=== PATIENT | female | born 1955 | race Caucasian/White ===

== ENCOUNTER → 2018-11-21 | Outpatient (REF) | payer MEDICARE, MEDICAID ==
[2018-11-21 19:10] LABS: ALBUMIN 4.2 GM/DL (3.2-5.2); BILIRUBIN,TOTAL 0.8 MG/DL (0.2-1.0); CALCIUM LEVEL 9.1 MG/DL (8.8-10.2); CHOLESTEROL RISK RATIO 2.37 (<5); CREATININE FOR GFR 1.15 MG/DL (0.55-1.30); FREE T4 2.08 NG/DL (0.76-1.46); GLOMERULAR FILTRATION RATE 50.9 (>45); POTASSIUM SERUM 4.1 MEQ/L (3.5-5.1); THYROID STIMULATING HORMONE 0.079 uIU/ML (0.358-3.740); TOTAL PROTEIN 7.3 GM/DL (6.4-8.2)
[2018-11-21 19:11] LABS: FOLATE 14.6 NG/ML (>5.4); TOTAL 25(OH) VITAMIN D 22.3 NG/ML (30.0-100.0)
[2018-11-21 19:24] LABS: HEMOGLOBIN A1c 5.7 %
[2018-11-21 19:28] LABS: BASO % 0.4 % (0.0-1.0); EOS # 0.3 10^3/uL (0.0-0.50); EOS % 5.1 % (0.0-3.0); HEMATOCRIT 44.8 % (36.0-47.0); HEMOGLOBIN 14.9 g/dl (12.0-15.5); LYMPH # 1.3 10^3/uL (1.5-4.5); LYMPH % 26.5 % (24.0-44.0); MEAN CORPUSCULAR HEMOGLOBIN 30.5 pg (27.0-33.0); MEAN CORPUSCULAR HGB CONC 33.3 g/dl (32.0-36.5); MEAN CORPUSCULAR VOLUME 91.6 fl (80.0-96.0); MONO # 0.4 10^3/uL (0.0-0.8); NEUTROPHILS # 2.9 10^3/uL (1.8-7.7); NEUTROPHILS % 58.8 % (36.0-66.0); PLATELET COUNT, AUTOMATED 202 10^3/uL (150-450); RED BLOOD COUNT 4.89 10^6/uL (4.00-5.40); WHITE BLOOD COUNT 4.9 10^3/uL (4.0-10.0)
[2018-11-25 14:26] LABS: Lyme Disease IgG Ab 18 kDa Ban Absent (.); Lyme Disease IgG Ab 23 kDa Ban Present (.); Lyme Disease IgG Ab 28 kDa Ban Absent (.); Lyme Disease IgG Ab 30 kDa Ban Absent (.); Lyme Disease IgG Ab 39 kDa Ban Present (.); Lyme Disease IgG Ab 41 kDa Ban Absent (.); Lyme Disease IgG Ab 45 kDa Ban Absent (.); Lyme Disease IgG Ab 58 kDa Ban Absent (.); Lyme Disease IgG Ab 66 kDa Ban Absent (.); Lyme Disease IgG Ab 93 kDa Ban Present (.); Lyme Disease IgG West Blot Int Negative (.); Lyme Disease IgG/IgM Antibodie 1.03 ISR (0.00-0.90); Lyme Disease IgM Ab 23 kDa Ban Present (.); Lyme Disease IgM Ab 39 kDa Ban Absent (.); Lyme Disease IgM Ab 41 kDa Ban Absent (.); Lyme Disease IgM Ab Quantitati <0.80 index (0.00-0.79); Lyme Disease IgM West Blot Int Negative (.)
== END ==
LOC: M LAB REF 18:19
PROVIDERS: ATTEND Family Medicine
DX: Z00.01 Encounter for general adult medical examination with abnormal findings (principal); Z13.228 Encounter for screening for other metabolic disorders; R20.2 Paresthesia of skin; M54.5 Low back pain

== ENCOUNTER 2019-01-09 14:25 | Emergency (ER) | payer MEDICARE, MEDICAID ==
[~2019-01-09] VITALS: Ht 165.1 cm; Wt 58.5 kg
[2019-01-09] MEDS ORDERED: GABA-843 (14:36)
[2019-01-09] MEDS ORDERED: LEVO112T2 (14:36)
[2019-01-09] MEDS ORDERED: GABA-845 PO (15:56)
[2019-01-09 16:05] VITALS: BP 125/61
== END 2019-01-09 16:06 | disposition home or self-care (01) ==
LOC: M ED 14:25
DX: Z45.2 Encounter for adjustment and management of vascular access device (principal); R20.2 Paresthesia of skin; Z79.890 Hormone replacement therapy; Z85.038 Personal history of other malignant neoplasm of large intestine; Z90.49 Acquired absence of other specified parts of digestive tract

== ENCOUNTER → 2019-04-05 | Day surgery (SDC) | payer MEDICARE, MEDICAID ==
[~2019-04-05] VITALS: Ht 165.1 cm; Wt 60.3 kg
[~2019-04-05] MED LIST: GABA-843; GABA-845 PO; HYDR-3713; LEVO112T2 PO; NS 1,000 ML IV ONE; OMEP-221
== END | disposition home or self-care (01) ==
LOC: M OPP 09:49
PROVIDERS: ATTEND Surgery
DX: Z53.9 Procedure and treatment not carried out, unspecified reason (principal)

== ENCOUNTER 2019-04-19 21:47 | Emergency (ER) | payer MEDICARE, MEDICAID ==
[~2019-04-19] VITALS: Ht 165.1 cm; Wt 59.5 kg
[~2019-04-19 21:47] MED LIST changes: -HYDR-3713; -NS 1,000 ML IV ONE; -OMEP-221
[2019-04-19] MEDS ORDERED: HYDR-3713 (21:58)
[2019-04-19] MEDS ORDERED: OMEP-221 PO (21:58)
[2019-04-20] MEDS ORDERED: GABAPENTIN 300 MG CAP PO ONE (00:30)
[2019-04-20] MEDS ORDERED: KETOROLAC TROMETHAMINE 10 MG TAB PO ONE (00:30)
[2019-04-20 01:35] VITALS: BP 113/62
[2019-04-27] MEDS ORDERED: GABA-845 PO (14:53)
== END 2019-04-20 01:39 | disposition home or self-care (01) ==
LOC: M ED 21:47
DX: M54.41 Lumbago with sciatica, right side (principal); Z90.49 Acquired absence of other specified parts of digestive tract; Z85.038 Personal history of other malignant neoplasm of large intestine; Z79.899 Other long term (current) drug therapy

== ENCOUNTER 2019-05-03 06:31 | Day surgery (SDC) | payer MEDICARE, MEDICAID ==
[~2019-05-03] VITALS: Ht 165.1 cm; Wt 58.1 kg
[~2019-05-03 06:31] MED LIST changes: +HYDR-3713; +OMEP-221 PO
[2019-05-03] MEDS ORDERED: PROPOFOL 200 MG/20 ML VIAL As Ordered ONE ×2 (07:07→08:02)
[2019-05-03] MEDS ORDERED: LIDOCAINE 2% INJ 100 MG/5 ML SDV (FOR ANES.) As Ordered ONE (07:07)
[2019-05-03] MEDS ORDERED: ePHEDrine SULFATE 25 MG/5 ML(5MG/ML) SYRINGE As Ordered ONE (07:42)
--- NOTE | 2019-05-03 08:19 | ROOR ---
Patient Name: Marlee Pressley Procedure Date: 05/03/2019 7:33 AM Date of : 1955 Age: 63 Room: [facility] Gender: Female Note Status: Finalized Procedure: Colonoscopy Indications: High risk colon cancer surveillance: Personal history of colon cancer Providers: DO Shey Hair MD: Juan Pablo HAMPTON MD Requesting Provider: Medicines: Propofol per Anesthesia Complications: No immediate complications. Procedure: Pre-Anesthesia Assessment: - Prior to the procedure, a History and Physical was performed, and patient medications and allergies were reviewed. The patient is competent. The risks and benefits of the procedure and the sedation options and risks were discussed with the patient. All questions were answered and informed consent was obtained. Patient identification and proposed procedure were verified by the physician, the nurse, the anesthesiologist and the forklift technician in the endoscopy suite. Mental Status Examination: alert and oriented. Airway Examination: normal oropharyngeal airway and neck mobility. Respiratory Examination: clear to auscultation. CV Examination: normal. Prophylactic Antibiotics: The patient does not require prophylactic antibiotics. Prior Anticoagulants: The patient has taken no previous anticoagulant or antiplatelet agents. ASA Grade Assessment: III - A patient with severe systemic disease. After reviewing the risks and benefits, the patient was deemed in satisfactory condition to undergo the procedure. The anesthesia plan was to use monitored anesthesia care (MAC). Immediately prior to administration of medications, the patient was re-assessed for adequacy to receive sedatives. The heart rate, respiratory rate, oxygen saturations, blood pressure, adequacy of pulmonary ventilation, and response to care were monitored throughout the procedure. The physical status of the patient was re-assessed after the procedure. The Colonoscope was introduced through the anus and advanced to the ileocolonic anastomosis. The colonoscopy was performed without difficulty. The patient tolerated the procedure well. The patient tolerated the procedure well. Findings: A less than 5 mm polyp was found in the sigmoid colon. The polyp was pedunculated. The polyp was removed with a hot snare. Resection and retrieval were complete. Estimated blood loss was minimal. The exam was otherwise without abnormality. Impression: - One less than 5 mm polyp in the sigmoid colon, removed with a hot snare. Resected and retrieved. - The examination was otherwise normal. Recommendation: - Patient has a contact number available for emergencies. The signs and symptoms of potential delayed complications were discussed with the patient. Return to normal activities tomorrow. Written discharge instructions were provided to the patient. - Return to nurse practitioner in 2 weeks. - Await pathology results. Hector Mao DO 05/03/2019 8:19:08 AM Electronically signed by Hector Mao DO Number of Addenda: 0 Note Initiated On: 05/03/2019 7:33 AM Estimated Blood Loss: Estimated blood loss was minimal.
[2019-05-03 08:30] VITALS: BP 118/62
[2019-05-03] MEDS: NS 1,000 ML IV ONE (08:30)
--- NOTE | 2019-05-04 18:58 | RO ---
DATE OF PROCEDURE: 05/03/2019 PREOPERATIVE DIAGNOSIS: Status post colon cancer resection and chemotherapy. POSTOPERATIVE DIAGNOSIS: Status post colon cancer resection and chemotherapy. PROCEDURE: Mediport removal. SURGEON: Dr. Hector Mao GAS TRANSFER OPERATOR: None. ANESTHESIA: IV sedation was done coinciding with colonoscopy and 2-1/2 mL of 2% lidocaine with epinephrine (epi). COMPLICATIONS: None. INDICATIONS: The patient is a female who presented status post colon cancer resection in 2017. She underwent chemotherapy through a Mediport in the right chest going through the internal jugular access. She has completed her chemo, cancer, to her knowledge, is completed. She was sent here for a repeat colonoscopy as well as Mediport removal. I completed her colonoscopy already; that report will be completed in [place]. There were no signs of any recurrence, just one polyp in her sigmoid that was removed with a hot snare, and therefore, we planned to proceed with the Mediport removal. Risks and benefits of the procedure not limited to but including bleeding, infection, damage to surrounding structures, need for further surgery were discussed in detail with the patient preoperatively and consent had already been signed. DESCRIPTION OF PROCEDURE: The patient's right chest was sterilely prepped and draped with chlorhexidine. Next, 2-1/2 mL of local was injected in the skin and subcutaneous tissue through the previous incision line. Next, a 3 cm incision was made through her previous incision site with a 10 blade scalpel. The scalpel was used to open the capsule of the port as well. The port was then grabbed with a pair of hemostats, dissected free using some blunt and sharp dissection with a scalpel and a hemostat. Once it was completely freed up, held pressure at the internal jugular (IJ) insertion site above the clavicle and removed the port, held pressure there for about a minute. Then, using a #3-0 Vicryl suture, I sutured the capsule closed over top of the tunnel where the catheter had come out of the vein. Once that was done, I did a couple more interrupted #3-0 Vicryl sutures to reapproximate the subcutaneous tissues and then I did some interrupted #2-0 nylon sutures to reapproximate the skin. Once that was completed, the area was cleaned and dried, 4x4 and tape was applied thus ending procedure. HENRY
== END 2019-05-03 08:50 | disposition home or self-care (01) ==
LOC: M OPP 06:31
PROVIDERS: ATTEND Surgery
DX: Z85.038 Personal history of other malignant neoplasm of large intestine (principal); D12.5 Benign neoplasm of sigmoid colon; Z90.49 Acquired absence of other specified parts of digestive tract; Z92.21 Personal history of antineoplastic chemotherapy; Z79.899 Other long term (current) drug therapy; F17.210 Nicotine dependence, cigarettes, uncomplicated; Z08 Encounter for follow-up examination after completed treatment for malignant neoplasm

== ENCOUNTER → 2019-05-25 | Outpatient (REF) | payer MEDICARE, MEDICAID ==
[2019-05-25 12:14] LABS: BASO % 0.7 % (0.0-1.0); EOS # 0.3 10^3/uL (0.0-0.5); EOS % 4.8 % (0.0-3.0); HEMATOCRIT 40.5 % (36.0-47.0); HEMOGLOBIN 13.6 g/dl (12.0-15.5); LYMPH % 37.9 % (24.0-44.0); MEAN CORPUSCULAR HEMOGLOBIN 30.8 pg (27.0-33.0); MEAN CORPUSCULAR HGB CONC 33.6 g/dl (32.0-36.5); MEAN CORPUSCULAR VOLUME 91.6 fl (80.0-96.0); MONO # 0.4 10^3/uL (0.0-0.8); MONO % 7.4 % (0.0-5.0); NEUTROPHILS # 2.6 10^3/uL (1.5-8.5); PLATELET COUNT, AUTOMATED 193 10^3/uL (150-450); RED BLOOD COUNT 4.42 10^6/uL (4.00-5.40); WHITE BLOOD COUNT 5.4 10^3/uL (4.0-10.0)
[2019-05-25 12:30] LABS: ALBUMIN 3.8 GM/DL (3.2-5.2); ALT/SGPT 21 U/L (12-78); BILIRUBIN,TOTAL 0.5 MG/DL (0.2-1.0); BLOOD UREA NITROGEN 15 MG/DL (7-18); CALCIUM LEVEL 8.9 MG/DL (8.8-10.2); CARBON DIOXIDE LEVEL 28 MEQ/L (21-32); CHLORIDE LEVEL 107 MEQ/L (98-107); CHOLESTEROL LEVEL 191 MG/DL (<200); CHOLESTEROL RISK RATIO 3.131 (<5); CREATININE FOR GFR 0.85 MG/DL (0.55-1.30); FREE T4 1.68 NG/DL (0.76-1.46); GLOMERULAR FILTRATION RATE > 60.0 (>45); GLUCOSE, FASTING 154 MG/DL (70-100); HDL CHOLESTEROL 61 MG/DL (>40); LDL CHOLESTEROL 102 MG/DL (<100); NON-HDL-C 130 MG/DL; POTASSIUM SERUM 4.3 MEQ/L (3.5-5.1); SODIUM LEVEL 143 MEQ/L (136-145); TOTAL PROTEIN 6.6 GM/DL (6.4-8.2); TRIGLYCERIDES LEVEL 140 MG/DL (<150)
[2019-05-25 12:32] LABS: TOTAL 25(OH) VITAMIN D 23.1 NG/ML (30.0-100.0)
[2019-05-25 13:22] LABS: HEMOGLOBIN A1c 5.6 %
== END ==
LOC: M LAB REF 11:42
PROVIDERS: ATTEND Family Medicine
DX: Z13.9 Encounter for screening, unspecified (principal); R73.03 Prediabetes; G62.9 Polyneuropathy, unspecified; E78.00 Pure hypercholesterolemia, unspecified

== ENCOUNTER → 2019-07-31 | Outpatient (CLI) | payer MEDICARE, MEDICAID ==
--- NOTE | 2019-07-31 12:28 | REP ---
LEFT FOOT: Four views. HISTORY: Pain in the left foot. Numbness. FINDINGS: Four views of the left foot show diffuse osteopenia. There is mild osteoarthritis at the 1st MTP joint. There is an os perineum. There is a small accessory ossicle adjacent to the proximal end of the 5th metatarsal with well corticated margins. There are three adjacent accessory ossicles medially adjacent to the tarsal navicula consistent with os naviculare. Minimal plantar heel spurring is present. IMPRESSION: No acute bony abnormality. 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 Accessory ossicles. Electronically Signed by Bryant Vanegas MD 07/31/2019 12:46 P
== END ==
LOC: M RAD 10:39
PROVIDERS: ATTEND Nurse Practitioner Family
DX: M85.872 Other specified disorders of bone density and structure, left ankle and foot (principal); M19.072 Primary osteoarthritis, left ankle and foot; M77.32 Calcaneal spur, left foot

== ENCOUNTER 2019-08-25 13:21 | Emergency (ER) | payer MEDICARE, MEDICAID ==
[~2019-08-25] VITALS: Ht 165.1 cm; Wt 61.2 kg
[2019-08-25] MEDS ORDERED: NAPR-885 (13:31)
[2019-08-25] MEDS ORDERED: IBUPROFEN 800 MG TAB PO ONE (15:30)
[2019-08-25 17:08] VITALS: BP 119/71
--- NOTE | 2019-08-25 19:24 | REP ---
REASON: Knee pain. PRIORS: None. FINDINGS: The compartments are symmetric and relatively well maintained. There is no acute fracture or destructive osseous lesion. Calcifications are seen in the distal quadriceps tendon at its patellar insertion suggesting an enthesopathy. Electronically Signed by Miguel Angel Small DO 08/28/2019 01:14 P
--- NOTE | 2019-08-25 19:26 | REP ---
REASON: Pain. COMPARISON: EXAM: None. AP pelvis was obtained with two views of the right hip. There is bilateral asymmetric hip joint space narrowing. There is bilateral buttressing. There are femoral head cam deformities bilaterally. There is no acute fracture, dislocation, or subluxation. IMPRESSION:Chronic changes as described above. Electronically Signed by Miguel Angel Small DO 08/28/2019 01:14 P
== END 2019-08-25 17:10 | disposition home or self-care (01) ==
LOC: M ED 13:21
DX: M16.11 Unilateral primary osteoarthritis, right hip (principal); M54.5 Low back pain; Z86.69 Personal history of other diseases of the nervous system and sense organs; Z79.899 Other long term (current) drug therapy

== ENCOUNTER → 2020-12-11 | Outpatient (CLI) | payer OTHER, MEDICAID ==
[~2020-12-11] MED LIST changes: +GABA-282; -GABA-843; +NAPR-885
[2020-12-11 18:16] LABS: ALT/SGPT 38 U/L (12-78); BILIRUBIN,TOTAL 0.4 MG/DL (0.2-1.0); BLOOD UREA NITROGEN 15 MG/DL (7-18); CARBON DIOXIDE LEVEL 29 MEQ/L (21-32); CHLORIDE LEVEL 105 MEQ/L (98-107); CHOLESTEROL LEVEL 212 MG/DL (<200); CHOLESTEROL RISK RATIO 2.904 (<5); CREATININE FOR GFR 0.78 MG/DL (0.55-1.30); FREE T4 1.72 NG/DL (0.76-1.46); GLOMERULAR FILTRATION RATE > 60.0 (>45); GLUCOSE, FASTING 88 MG/DL (70-100); HDL CHOLESTEROL 73 MG/DL (>40); LDL CHOLESTEROL 105 MG/DL (<100); NON-HDL-C 139 MG/DL; POTASSIUM SERUM 4.1 MEQ/L (3.5-5.1); SODIUM LEVEL 140 MEQ/L (136-145); THYROID STIMULATING HORMONE 0.086 uIU/ML (0.358-3.740); TOTAL PROTEIN 6.8 GM/DL (6.4-8.2); TRIGLYCERIDES LEVEL 171 MG/DL (<150)
== END ==
LOC: M LAB 16:25
PROVIDERS: ATTEND Student in an Organized Health Care Education/Training Program
DX: E03.9 Hypothyroidism, unspecified (principal)

== ENCOUNTER → 2021-01-23 | Outpatient (CLI) | payer OTHER, MEDICAID ==
[~2021-01-23] MED LIST changes: +GABA-283 PO; -GABA-845 PO
== END ==
LOC: M LAB 13:08
PROVIDERS: ATTEND Family Medicine
DX: E03.9 Hypothyroidism, unspecified (principal)

== ENCOUNTER → 2021-03-03 | Outpatient (CLI) | payer OTHER, MEDICAID | LOC: M LAB 14:02 | PROVIDERS: ATTEND Family Medicine | DX: E03.9 Hypothyroidism, unspecified (principal) ==

== ENCOUNTER → 2021-03-20 | Outpatient (CLI) | payer OTHER, MEDICAID ==
[~2021-03-20] MED LIST changes: -OMEP-221 PO; +OMEP40CA5 PO
== END ==
LOC: M LAB 14:42
PROVIDERS: ATTEND Family Medicine
DX: E03.9 Hypothyroidism, unspecified (principal)

== ENCOUNTER → 2021-04-16 | Outpatient (CLI) | payer OTHER, MEDICAID ==
[~2021-04-16] MED LIST changes: +OMEP-221 PO; -OMEP40CA5 PO
== END ==
LOC: M LAB 14:59
PROVIDERS: ATTEND Family Medicine
DX: E03.9 Hypothyroidism, unspecified (principal)

== ENCOUNTER → 2023-12-22 | Outpatient (REF) | payer OTHER, MEDICAID ==
[~2023-12-22] MED LIST changes: -GABA-283 PO; +GABA-284 PO; -OMEP-221 PO; +OMEP40CA5 PO
[2023-12-22 13:34] LABS: ALBUMIN 3.8 G/DL (3.2-5.2); ALKALINE PHOSPHATASE 121 U/L (46-116); ALT/SGPT 19 U/L (7.0-40); AST/SGOT 15 U/L (<34); BLOOD UREA NITROGEN 14 MG/DL (9-23); CALCIUM LEVEL 9.3 MG/DL (8.3-10.6); CARBON DIOXIDE LEVEL 28 MMOL/L (20-31); CHLORIDE LEVEL 106 MMOL/L (98-107); CHOLESTEROL LEVEL 188 MG/DL (<200); CHOLESTEROL RISK RATIO 2.52 (<5); CREATININE FOR GFR 0.91 MG/DL (0.55-1.30); GLOMERULAR FILTRATION RATE > 60.0 (>45); GLUCOSE, FASTING 96 MG/DL (74-106); HDL CHOLESTEROL 74.6 MG/DL (>40); LDL CHOLESTEROL 93.2 MG/DL (<100); NON-HDL-C 113.4 MG/DL; POTASSIUM SERUM 4.3 MMOL/L (3.5-5.1); SODIUM LEVEL 142 MMOL/L (136-145); TOTAL PROTEIN 6.3 G/DL (5.7-8.2); TRIGLYCERIDES LEVEL 101 MG/DL (<150)
[2023-12-22 13:36] LABS: TOTAL 25(OH) VITAMIN D 24.2 NG/ML (20.0-100.0)
[2023-12-22 13:38] LABS: HEMOGLOBIN A1c 5.5 % (4.0-6.0)
[2023-12-22 14:01] LABS: HIV 1&2 SCREEN NEGATIVE (NEGATIVE)
[2023-12-22 14:09] LABS: HEPATITIS C VIRUS ABY INDEX 0.05 INDEX (<0.8)
== END ==
LOC: M LAB REF 12:06
PROVIDERS: ATTEND Physician Assistant
DX: E55.9 Vitamin D deficiency, unspecified (principal); E03.1 Congenital hypothyroidism without goiter; E78.5 Hyperlipidemia, unspecified; Z79.899 Other long term (current) drug therapy; Z11.3 Encounter for screening for infections with a predominantly sexual mode of transmission; Z72.89 Other problems related to lifestyle

== ENCOUNTER → 2023-12-29 | Outpatient (REF) | payer OTHER, MEDICAID | LOC: M LAB REF 16:13 | PROVIDERS: ATTEND Physician Assistant | DX: Z79.891 Long term (current) use of opiate analgesic (principal) ==

== ENCOUNTER → 2024-04-21 | Day surgery (SDC) | payer OTHER, MEDICAID ==
[~2024-04-21] VITALS: Ht 165.1 cm; Wt 62.1 kg
[~2024-04-21] MED LIST changes: +LIDOCAINE 2% 100MG/5ML SDV (FOR ANES.) As Ordered ONE; +propofoL 200 MG/20 ML VIAL As Ordered ONE
[2024-04-21 09:29] VITALS: TEMP 98.4
[2024-04-21 09:55] VITALS: BP 110/59; O2SAT 94
== END | disposition home or self-care (01) ==
LOC: M OPP 07:45
PROVIDERS: ATTEND Surgery
DX: Z85.038 Personal history of other malignant neoplasm of large intestine (principal); Z86.010 Personal history of colon polyps; K64.0 First degree hemorrhoids; Z79.02 Long term (current) use of antithrombotics/antiplatelets; Z79.890 Hormone replacement therapy; Z79.891 Long term (current) use of opiate analgesic; Z79.899 Other long term (current) drug therapy; Z88.5 Allergy status to narcotic agent; Z87.891 Personal history of nicotine dependence

== ENCOUNTER → 2024-06-29 | Outpatient (CLI) | payer OTHER, MEDICAID ==
[~2024-06-29] MED LIST changes: +GABA-1172; -GABA-282; -LIDOCAINE 2% 100MG/5ML SDV (FOR ANES.) As Ordered ONE; -propofoL 200 MG/20 ML VIAL As Ordered ONE
== END ==
LOC: M WHC 14:46
PROVIDERS: ATTEND Physician Assistant
DX: Z12.31 Encounter for screening mammogram for malignant neoplasm of breast (principal)

== ENCOUNTER → 2024-07-12 | Outpatient (REF) | payer OTHER, MEDICAID ==
[2024-07-12 18:08] LABS: MAGNESIUM LEVEL 1.7 MG/DL (1.8-2.4)
[2024-07-12 18:10] LABS: PERCENT SATURATION 30.2 % (13.2-45.0)
[2024-07-12 18:11] LABS: FERRITIN 10.6 NG/ML (7.3-270.7); THYROID STIMULATING HORMONE 1.19 uIU/ML (0.55-4.78)
[2024-07-12 18:12] LABS: FOLATE 22.9 NG/ML (>5.4)
== END ==
LOC: M LAB REF 16:48
PROVIDERS: ATTEND Nurse Practitioner Family
DX: R20.2 Paresthesia of skin (principal); E03.1 Congenital hypothyroidism without goiter; Z86.39 Personal history of other endocrine, nutritional and metabolic disease

== ENCOUNTER → 2024-09-26 | Outpatient (REF) | payer OTHER, MEDICAID | LOC: M LAB REF 16:27 | PROVIDERS: ATTEND Nurse Practitioner Family | DX: E83.42 Hypomagnesemia (principal) ==

== ENCOUNTER → 2025-01-04 | Outpatient (REF) | payer OTHER, MEDICAID | LOC: M LAB REF 16:30 | PROVIDERS: ATTEND Nurse Practitioner Family | DX: G62.9 Polyneuropathy, unspecified (principal) ==

== ENCOUNTER → 2025-04-23 | Outpatient (REF) | payer OTHER, MEDICAID | LOC: M LAB REF 14:35 | PROVIDERS: ATTEND Nurse Practitioner Family | DX: R74.8 Abnormal levels of other serum enzymes (principal) ==

== ENCOUNTER → 2025-07-03 | Outpatient (REF) | payer OTHER, MEDICAID ==
[2025-07-03 16:46] LABS: BASO # 0.1 10^3/uL (0.0-0.2); BASO % 0.6 % (0.0-1.0); EOS # 0.4 10^3/uL (0.0-0.5); EOS % 4.5 % (0.0-3.0); LYMPH # 3.0 10^3/uL (1.5-5.0); LYMPH % 36.7 % (24.0-44.0); MONO # 0.5 10^3/uL (0.0-0.8); MONO % 6.7 % (2.0-8.0); NEUTROPHILS # 4.1 10^3/uL (1.5-8.5); NEUTROPHILS % 51.3 % (36.0-66.0); PLATELET COUNT, AUTOMATED 271 10^3/uL (150-450)
[2025-07-03 17:06] LABS: CALCIUM LEVEL 9.7 MG/DL (8.3-10.6); CARBON DIOXIDE LEVEL 28.0 MMOL/L (20-31); CHLORIDE LEVEL 104.0 MMOL/L (98-107); CREATININE FOR GFR 1.02 MG/DL (0.55-1.30); GLOMERULAR FILTRATION RATE 59.9 (>45); POTASSIUM SERUM 5.0 MMOL/L (3.5-5.1); SODIUM LEVEL 143.0 MMOL/L (136-145)
== END ==
LOC: M LAB REF 16:18
PROVIDERS: ATTEND Nurse Practitioner Family
DX: Z01.818 Encounter for other preprocedural examination (principal)

== ENCOUNTER 2025-07-30 08:33 | Day surgery (SDC) | payer OTHER, MEDICAID ==
[~2025-07-30] VITALS: Ht 165.1 cm; Wt 62.7 kg
[~2025-07-30 08:33] MED LIST changes: +CYAN500T14 PO; +CYCLOPENTOLATE 1% OPHTH SOLN 2 ML BTL OD SCH; +FLURBIPROFEN 0.03% OPHTH SOLN 2.5 ML OD SCH; +LR 1,000 ML IV SCH; +PHENYLEPHRINE 2.5% OPHTH SOL 2ML OD SCH; +PRAV20TA78 PO; +TETRACAINE 0.5% OPHTH SOLN 4ML OD SCH
[2025-07-30] MEDS ORDERED: MIDAZOLAM INJ 2 MG/2 ML VIAL As Ordered ONE (08:54)
[2025-07-30] MEDS: CEFUROXIME 1 MG/0.1 ML INTRACAMERAL INJ As Ordered ONE (12:22)
[2025-07-30] MEDS: LIDOCAINE 1% SDV 5 ML VIAL As Ordered ONE (12:22)
[2025-07-30 12:43] VITALS: BP 112/65; TEMP 97.8; O2SAT 96
== END 2025-07-30 12:57 | disposition home or self-care (01) ==
LOC: M SDC 08:33
PROVIDERS: ATTEND Ophthalmology
DX: H25.11 Age-related nuclear cataract, right eye (principal); E03.9 Hypothyroidism, unspecified; G62.9 Polyneuropathy, unspecified; Z92.21 Personal history of antineoplastic chemotherapy; Z79.899 Other long term (current) drug therapy; Z79.890 Hormone replacement therapy; Z88.8 Allergy status to other drugs, medicaments and biological substances; Z85.038 Personal history of other malignant neoplasm of large intestine; Z90.49 Acquired absence of other specified parts of digestive tract
CPT/HCPCS: 66984; J0697; J2250; J3010; V2632

== ENCOUNTER → 2025-08-23 | Outpatient (REF) | payer OTHER, MEDICAID ==
[~2025-08-23] MED LIST changes: -CYCLOPENTOLATE 1% OPHTH SOLN 2 ML BTL OD SCH; -FLURBIPROFEN 0.03% OPHTH SOLN 2.5 ML OD SCH; -LR 1,000 ML IV SCH; -PHENYLEPHRINE 2.5% OPHTH SOL 2ML OD SCH; -TETRACAINE 0.5% OPHTH SOLN 4ML OD SCH
[2025-08-23 15:05] LABS: ALT/SGPT 20.0 U/L (7.0-40); AST/SGOT 16.0 U/L (<34); CHOLESTEROL LEVEL 198.0 MG/DL (<200); CHOLESTEROL RISK RATIO 2.63 (<5); LDL CHOLESTEROL 103.2 MG/DL (<100); NON-HDL-C 122.8 MG/DL; TRIGLYCERIDES LEVEL 98.0 MG/DL (<150)
== END ==
LOC: M LAB REF 13:51
PROVIDERS: ATTEND Nurse Practitioner Family
DX: E78.5 Hyperlipidemia, unspecified (principal); E03.1 Congenital hypothyroidism without goiter